=== PATIENT | female | born 1995 | race Hispanic/Latino ===

== ENCOUNTER 2018-03-29 20:19 | Emergency (ER) | payer BC ==
[2018-03-29 20:29] VITALS: RESP 18; O2SAT 100
[2018-03-29 21:43] LABS: BASO % 0.6 % (0.0-2.0); EOS % 0.5 % (0.0-4.0); HEMOGLOBIN 14.1 g/dL (12.0-16.0); LYMPH # 1.9 K/uL (1.0-4.3); LYMPH % 27.1 % (20.0-40.0); MEAN CELL VOLUME 92.7 fl (81.0-99.0); MEAN CORPUSCULAR HEMOGLOBIN 31.2 pg (27.0-31.0); MEAN CORPUSCULAR HGB CONC 33.6 g/dL (33.0-37.0); MEAN PLATELET VOLUME 9.5 fl (7.2-11.7); MONO # 0.5 K/uL (0.0-0.8); MONO % 6.8 % (0.0-10.0); NEUT # 4.7 K/uL (1.8-7.0); RBC 4.51 Mil/uL (3.80-5.20); RED CELL DISTRIBUTION WIDTH 13.4 % (11.5-14.5); WHITE BLOOD COUNT 7.1 K/uL (4.8-10.8)
[2018-03-29 21:48] LABS: ALB/GLOB RATIO 1.4 (1.0-2.1); ALBUMIN 4.4 g/dL (3.5-5.0); ALT/SGPT 34 U/L (9-52); AST/SGOT 31 U/L (14-36); BLOOD UREA NITROGEN 14 mg/dl (7-17); CALCIUM 9.7 mg/dL (8.4-10.2); GFR AFRICAN-AMERICAN > 60; GFR NON-AFRICAN AMERICAN > 60
[2018-03-29 22:05] LABS: SQUAMOUS EPITHIAL 1 /hpf (0-5); URINE BILIRUBIN NEGATIVE (NEGATIVE); URINE BLOOD NEGATIVE (NEGATIVE); URINE CLARITY CLEAR (Clear); URINE COLOR YELLOW (YELLOW); URINE GLUCOSE (UA) NEG (Normal); URINE LEUKOCYTE ESTERASE TRACE Leu/uL (Negative); URINE PROTEIN NEGATIVE (NEGATIVE); URINE UROBILINOGEN 0.2-1.0 mg/dL (0.2-1.0)
--- NOTE | 2018-03-29 22:10 | ED PDOC ---
HPI: General Adult Time Seen by Provider: 03/29/18 20:30 Chief Complaint (Nursing): Female Genitourinary History Per: Patient Additional Complaint(s): Pt. states for the past 2 months she's had heavy intermittent vaginal bleeding. States 5 days ago she's had the heaviest onset and has had to use 2 fully soaked tampons q2h. Also reports having b/l pelvic cramping with nausea (no vomiting). Pt. believes symptoms are due to her Marleni IUD inserted on October 2016. Pt. also c/o feeling "depressed" along with having racing thoughts. Pt. states she's also had a feeling of guilt whenever she has intercourse. These feelings have been going on for the past 5 days. Denies dysuria, hematuria, vaginal discharge, vomiting, diarrhea, fever, back pain, flank pain. Past Medical History Reviewed: Historical Data, Nursing Documentation, Vital Signs Vital Signs: Last Vital Signs Temp 98.5 F 03/30/18 01:47 Pulse 55 L 03/30/18 01:47 Resp 18 03/30/18 01:47 BP 118/74 03/30/18 01:47 Pulse Ox 100 03/30/18 01:47 - Surgical History Surgical History: No Surg Hx - Family History Family History: States: No Known Family Hx - Allergies Allergies/Adverse Reactions: Allergies Allergy/AdvReac Type Severity Reaction Status Date / Time No Known Allergies Allergy Verified 03/29/18 20:26 Review of Systems ROS Statement: Except As Marked, All Systems Reviewed And Found Negative Genitourinary Female: Positive for: Vaginal Bleeding, Pelvic Pain Physical Exam - Physical Exam Appears: Positive for: Well, Non-toxic, No Acute Distress Skin: Positive for: Normal Color, Warm. Negative for: Rash Eye Exam: Positive for: EOMI, Normal appearance, PERRL ENT: Positive for: Normal ENT Inspection Gastrointestinal/Abdominal: Positive for: Normal Exam, Soft. Negative for: Tenderness Pelvic Exam: Positive for: External Exam Normal, No Cerv. Motion Tender, Blood, Other (string steming from cervical os noted; Leah program technician present during entire pelvic exam). Negative for: Active Bleeding, Lesions, Ulcers Back: Positive for: Normal Inspection. Negative for: L CVA Tenderness, R CVA Tenderness Neurologic/Psych: Positive for: Alert, Oriented - Laboratory Results Result Diagrams: 03/29/18 21:34 05/06/18 21:34 Urine POC: Negative Urine dip results: Positive for: Blood (trace), Ketones (40). Negative for: Leukocyte Esterase, Nitrate, Glucose, Bilirubin, Protein - ECG O2 Sat by Pulse Oximetry: 100 - Progress ED Course And Treament: Labs, TVUS ordered. 2238 TVUS: No acute findings; IUD in place 2299 Case and diagnostics d/w Dr. Shah who recommends non-emergent removal of IUD with pt.'s private OBGYN. 0140 Pt. evaluated by Eunice, salvage worker, who spoke with Dr. Negron and cleared pt. for discharge. Disposition - Clinical Impression Clinical Impression: Abnormal uterine bleeding (AUB), Anxiety - Patient ED Disposition Is Patient to be Admitted: No - Disposition Referrals: Serena Vance [Outside] Disposition: Routine/Home Disposition Time: 01:25 Condition: STABLE Additional Instructions: FOLLOW UP WITH YOUR OBGYN FOR FURTHER EVALUATION RETURN TO ED IMMEDIATELY IF SYMPTOMS WORSEN Instructions: Absent or Irregular Periods, Anxiety, Adult (DC), Intrauterine Devices (IUD) Forms: Serena Kumar (H[place]ian), [facility] ED School/Work Excuse Print Language: SAMI
[2018-03-29 22:12] LABS: PROTHROMBIN TIME 11.4 Seconds (9.8-13.1)
[2018-03-29 22:13] LABS: PARTIAL THROMBOPLASTIN TIME 29.2 Seconds (25.6-37.1)
[2018-03-30 01:48] VITALS: BP 118/74; PULSE 55; TEMP 98.5
--- NOTE | 2018-03-30 10:28 | US ---
HISTORY: vaginal bleeding and cramping Menstrual status: LMP 03/24/2018. Cycles are irregular COMPARISON: None available. TECHNIQUE: Transvaginal only. Real -time technique with 2D, duplex and color Doppler FINDINGS: UTERUS: Measures 5 x 3.7 x 7.7 cm. Normal in size and appearance. No fibroid or other mass lesion seen. ENDOMETRIUM: Measures 3.2 mm in diameter. Intrauterine contraceptive device (IUD) identified CERVIX: No cervical abnormality identified. RIGHT OVARY: Measures 2.3 x 2.8 x 3.7 cm. No solid mass. Normal flow. Multiple subcentimeter follicles. LEFT OVARY: Measures 1.6 x 3 x 2.9 cm. No solid mass. Normal flow. Multiple subcentimeter follicles. FREE FLUID: No significant free fluid noted. OTHER FINDINGS: None. IMPRESSION: No acute findings related to/accounting for the clinical presentation. Additional benign and/or incidental findings described above. Concordant results (preliminary interpretation) provided by [facility]. Procedure Completed: 21:19 Preliminary ([facility]) Report: Dictated and Authenticated: 22:39 Final Interpretation: 10:27 March 30, 2018.
== END 2018-03-30 01:48 | disposition home or self-care (01) ==
LOC: H.ER 20:19
DX: N93.9 Abnormal uterine and vaginal bleeding, unspecified (principal); F41.9 Anxiety disorder, unspecified